=== PATIENT | female | born 1960 | race Caucasian/White ===

== ENCOUNTER → 2016-09-07 | Day surgery (SDC) | payer MEDICAID ==
[~2016-09-07] MED LIST: ACETAMINOPHEN650 M4 PO; ACID CONTROL150 MG PO; ALPRAZOLAM0.25 MG PO; ANTIVERT PO; ATIVAN0.5 MG DOB; ATORVASTATIN CA10 MG PO; DITROPAN PO; DITROPAN XL PO; DULOXETINE HCL60 M1 PO; DULOXETINE HCL60 MG PO; EFFEXOR XR75 MG BU; EFFEXOR XR75 MG PO; GABAPENTIN400 M2 PO; LEVOXYL125 MCG PO; MELOXICAM15 MG PO; OMEPRAZOLE40 M1 PO; PROTONIX PO; SYNTHROID112 MCG PO; SYNTHROID125 PO; TOPAMAX200 MG PO; TRAZODONE HCL100 MG PO; XANAX0.5 MG PO; ZANAFLEX4 M1 PO
--- NOTE | ~2016-09-07 | OR ---
Unit #: [id number] #: [id number] Patient: GEMA DALTON [id number] [address] [place], [place] [address] [id number] MR#: [id number] NAME: GEMA DALTON ROOM: Date of Procedure: 09/07/2016 Admission Date: 09/07/2016 Surgeon: Edward Vee M.D. : 1960 Attending Physician: Edward Vee M.D. Primary Care Physician: Keegan Hernández M.D. OPERATIVE REPORT PROCEDURES PERFORMED Esophagogastroduodenoscopy with biopsy, colonoscopy with biopsy, and colonoscopy with snare polypectomy. INDICATIONS FOR PROCEDURE The patient with history of Hemoccult-positive stool, left lower quadrant pain, GERD symptoms, history of Guevara esophagus, esophagitis, and irregular bowel movements, predominant diarrhea undergoing evaluation with upper endoscopy and colonoscopy. MEDICATIONS Monitored anesthesia. POSTOPERATIVE FINDINGS 1. Previously documented esophagitis, cleared. 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 Biopsies taken. 2. Hiatal hernia. 3. Gastritis. Biopsies taken. 4. Normal duodenum and distal duodenum. 5. Polyp, ascending colon, 5 mm, snared and sent for histopathology. 6. Prep was poor leading to suboptimal exam. 7. Random biopsies taken given her history of diarrhea. PLAN Symptomatic treatment for now. Follow up on the pathology report. Continue assisted PPI therapy. Repeat upper endoscopy in 2 years. Repeat colonoscopy in 1 to 2 years. DESCRIPTION OF PROCEDURE The patient was explained of the procedure, risks, and benefits along with the risks and benefits of anesthesia. She was brought to the endoscopy room. Propofol anesthesia was given. Bite block was placed. The scope was passed down the mouth into the esophagus, stomach, duodenum, and distal duodenum. Findings as described. Biopsies taken. Gently, I pulled the scope out of the patient's mouth. At this time, she was turned around and repositioned for colonoscopy. Rectal exam was done, which was normal. Colonoscope was lubricated, passed up the rectum, advanced under direct vision all the way to the cecum. Prep was poor. Some areas were not well visualized. Polyps seen in the ascending colon, snared, and sent for histopathology. Rest of the random biopsies were also taken because of her history of diarrhea. The scope was gently pulled out. She tolerated it well. No major Unit #: [id number] #: [id number] Patient: GEMA DALTON complications were seen. Dictated by... Nick Yun/carrie TD: 09/08/2016 23:43 JOB #: [id number] OPERATIVE REPORT Page 1 of 1 X Edward Vee MD X PROCEDURE OPERATIVE NOTE
== END | disposition home or self-care (01) ==
LOC: COPS 07-08 10:30
DX: D12.2 Benign neoplasm of ascending colon (principal); K29.80 Duodenitis without bleeding; K29.50 Unspecified chronic gastritis without bleeding; K21.0 Gastro-esophageal reflux disease with esophagitis; K44.9 Diaphragmatic hernia without obstruction or gangrene; K22.70 Barrett's esophagus without dysplasia; E03.9 Hypothyroidism, unspecified; Z87.01 Personal history of pneumonia (recurrent); Z79.899 Other long term (current) drug therapy; Z90.49 Acquired absence of other specified parts of digestive tract; Z98.890 Other specified postprocedural states
CPT/HCPCS: 88305; 88312; 88313; J2250